=== PATIENT | female | born 1960 ===

== ENCOUNTER 2016-05-15 08:21 | Day surgery (SDC) | payer OTHER ==
[2016-03-12 11:14] VITALS: BMI 27.8
[2016-05-15] MEDS ORDERED: Rocuronium 10 mg/ml (5 ml) ONE (10:58)
[2016-05-15] MEDS ORDERED: Midazolam 2 MG/2 ML VIAL ONE (10:58)
[2016-05-15] MEDS ORDERED: Propofol 10 mg/ml Inj (20 ML) ONE (10:58)
[2016-05-15] MEDS ORDERED: Succinylcholine Chloride 20 mg/ml Syr (5 ml) IV ONE (10:59)
[2016-05-15] MEDS ORDERED: Lidocaine Hydrochloride 5 ML INJ ONE (11:00)
[2016-05-15] MEDS ORDERED: Lactated Ringer's 1,000 ML IV ONE (11:10)
[2016-05-15] MEDS ORDERED: ceFAZolin IV 1 gm in Dextrose 100 ML IVPB ONE (11:16)
[2016-05-15] MEDS ORDERED: ePHEDrine 50 mg/ml Inj ONE (12:00)
[2016-05-15] MEDS ORDERED: Lidocaine 2% Inj (20ml) ONE (12:17)
[2016-05-15] MEDS ORDERED: Bupivacaine HCl 0.5% PF (10 ml) Inj ONE (12:57)
[2016-05-15] MEDS ORDERED: Neostigmine Methylsulfate 3mg/3ml Syringe IV ONE (13:03)
--- NOTE | 2016-05-15 13:14 | PCM.SURG1 ---
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 Anesthesia - General. Hemostasis - Right Pneumatic Thigh Tourniquet at 350mmHg for 81 minutes. EBL - 10mL. Materials - Arthrex SpeedBridge, 2-0 Vicryl, 4-0 Vicryl, 4-0 Moncryl, Sterstrips, Xeroform, DSD, Posterior Splint. Injectables - 15mL 0.5% Marcaine Plain, 5mL 2% Lidocaine Plain. Condition - Stable. Complications - None Post-Operative Diagnosis: Same Operation Performed: Right Ankle - Excision of Achilles tendon calcifications and calcaneal bone spurs with repair of achilles tendon Specimen/Specimens Removed: Bone Estimated Blood Loss: EBL {In ML}: 10 Blood Products Given: N/A Drains Used: No Drains Post-Op Condition: Good Date of Surgery/Procedure: 05/15/16 Time of Surgery/Procedure: 13:15 (In PACU)
[2016-05-15] MEDS ORDERED: Oxycodone/Acetaminophen 5/325 mg Tab PO PRN ×2 (13:15)
[2016-05-15] MEDS ORDERED: HYDROmorphone 0.5 mg/0.5 ml ISec IVP PRN (13:38)
[2016-05-15] MEDS ORDERED: Lactated Ringer's 1,000 ML IV SCH (13:45)
--- NOTE | 2016-05-15 14:09 | RAD ---
Right ankle two views History: Right Achilles tendon repair with spur incision. Comparison: None available. Findings: Prominent plantar calcaneal spurring. Transverse oblique linear lucency through the posterior calcaneus extending from the posterior superior cortex to the mid inferior cortex. This is of uncertain clinical etiology however osseous injury can't be excluded. Correlation with CT scan or MRI may be helpful for further evaluation to exclude fracture. Narrowing of the tibiotalar joint space. Mild productive change along the posterior cortex of the mid fibula, nonspecific. Ankle mortise maintained. Talar dome intact. Impression: Prominent plantar calcaneal spurring. Transverse oblique linear lucency through the posterior calcaneus extending from the posterior superior cortex to the mid inferior cortex. This is of uncertain clinical etiology however osseous injury can't be excluded. Correlation with CT scan or MRI may be helpful for further evaluation to exclude fracture. Narrowing of the tibiotalar joint space. Mild productive change along the posterior cortex of the mid fibula, nonspecific.
[2016-05-15] MEDS ORDERED: Lactated Ringer's 500 ML IV ONE (14:45)
[2016-05-15 16:25] VITALS: RESP 18; O2SAT 96
[2016-05-15 16:28] VITALS: BP 131/55; PULSE 72; TEMP 97.9
--- NOTE | 2016-05-16 16:31 | OP ---
PROCEDURE DATE: 05/15/2016 SURGEON: Shant Giang DPM. ASSISTANTS: 1. Martinez Mike DPM, PGY-3. 2. Denise Wang DPM, PGY-2. NECKTIES PAINTER: DIMITRIS Espinoza. PREOPERATIVE DIAGNOSES: 1) Right Lower Leg - Partial Achilles Tendon Tear 2) Right Foot - Painful calcaneal bone exostosis with spur POSTOPERATIVE DIAGNOSES: 1) Right Lower Leg - Partial Achilles Tendon Tear 2) Right Foot - Painful calcaneal bone exostosis with spur NAME OF PROCEDURE: 1) Right Lower Leg - Repair of Achilles Tendon with excision of painful calcifications and spurs. 2) Right Foot - Exostectomy of painful calcaneal bone exostosis and spurs INDICATIONS: This is a 55-year-old female with the aforementioned diagnosis. The patient has exhausted any and all conservative treatment options and she now requests for surgical intervention. The patient signed the consent form after careful explanation of all the risks, benefits, complications, and alternatives for the surgical procedure. There were no guarantees that were made, given, nor implied. PREPARATION: The patient was brought into the operating room, placed on the operating room table in the prone position. Prior to placing the patient on the operating room table, a well-padded pneumatic thigh tourniquet was placed on the patient's right thigh at the upper 1/3 thigh level. After induction of general anesthesia, the patient was then placed on to the operating room table in the prone position. Next, the right lower extremity was now prepped and draped in the usual sterile manner. A timeout was performed. An Esmarch bandage was utilized to exsanguinate the right foot, ankle, and lower leg. The pneumatic thigh tourniquet was then inflated to 350 mmHg and the procedure began. PROCEDURES #1 & #2: Our attention was directed to the posterior aspect of the patient's right heel where an approximately 5-6 cm linear incision was made on the posterior aspect of the patient's Achilles tendon and its insertion on the calcaneus. The incision was deepened to the subcutaneous tissues utilizing a combination of sharp and blunt dissection. Care was taken to identify and retract all vital neurovascular structures and cauterize all bleeders as deemed necessary. The incision was deepened down to the level of the peritenon on the Achilles tendon. Once the level was encountered, a fresh #15 blade was now utilized to make a linear incision on the posterior aspect of the Achilles tendon, thus incising the peritenon. The peritenon was then carefully dissected to free up its soft tissue attachments both medially and laterally and then reflected out of the surgical field. Next, a #15 blade was now utilized to make a linear incision within the Achilles tendon, approximately 4 cm superior to its insertion down to the level of its insertion on the calcaneus. The Achilles tendon was now split longitudinally and any intrasubstance calcifications became immediately identifiable and were now removed and sent as a pathologic specimen. Careful attention was paid when dissecting the Achilles insertion off of the calcaneus, that the far medial and far lateral attachments remained intact and not completely stripped off the calcaneus. Next, after all intrasubstance calcifications within the Achilles tendon were removed, this was then confirmed with the use of intraoperative fluoroscopy it was noted partial/intrasubstance tears of the achilles were identified. Next, osteotomes were now utilized to remove the hypertrophied bone off the posterior aspect of the calcaneus. The hypertrophied bone was removed from the calcaneal tuber until the posterior aspect of the calcaneus had a smooth contour. Next, the surgical site was now irrigated with a copious amount of normal sterile saline solution. Next, the Arthrex SpeedBridge was now sterilely passed onto the operative field. Utilizing the drill bit from the SpeedBridge set, the 2 superior drill holes were now created within the posterior aspect of the calcaneus. Next, after the drill holes were then created, the 2 SwiveLock anchors with FiberWire tape were now inserted appropriately into their superior drill holes. Next, the FiberTape loop with the needle from each SwiveLock was now passed through its respective portion of the Achilles tendon, the medial SwiveLock through the medial portion and the lateral SwiveLock through the lateral portion. Next, again utilizing the Arthrex 3.5 mm drillbit and drill guide, the 2 inferior drill holes were now created approximately 1 cm inferior to the superior drill holes within the posterior aspect of the calcaneus. Next, the FiberWire tape from each superior SwiveLock was now cut in order to reveal 2 strands of FiberWire per SwiveLock. Next, 1 strand of FiberWire from each SwiveLock was now respectively passed through the empty remaining SwiveLock anchors and then inserted into the inferior drill holes following the Arthrex surgical technique guide. After that was completed, all loose strands of FiberWire and excess strands of FiberWire are now cut to an appropriate length and discarded. The ankle was now put through a range of motion and the Achilles tendon was noted to be at an approximate physiologic tension. Next, the surgical site was now irrigated with a copious amount of normal sterile saline solution. Next, utilizing 2-0 Vicryl suture in a running locking fashion, the longitudinal split within the Achilles tendon was now repaired. Next, the surgical site was irrigated again with normal sterile saline solution and the peritenon was now reapproximated with #4- 0 Vicryl suture in a simple interrupted fashion. Next, the subcutaneous and subcuticular tissues were reapproximated with 4-0 Vicryl suture and then the skin was reapproximated with 4-0 Monocryl suture in a running subcuticular fashion. Next, the surgical site was then cleansed and dried and Steri-Strips were now applied across the surgical site. Next, the patient received a postoperative injection consisting of 15 mL of 0.5% Marcaine plain and 5 mL of 2 % lidocaine plain in the form of a local field block infiltration to the entire surgical area. Next, the surgical site was now dressed with Xeroform followed by dry sterile dressing followed by a standard posterior splint. The pneumatic thigh tourniquet was deflated and removed for a total of 81 minutes. POSTOPERATIVE CONDITION: The patient tolerated the anesthesia and the procedure well and was escorted to the recovery room with her vital signs stable and her neurovascular status intact to the right foot and ankle as noted by instantaneous hyperemia to all 5 digits of the right foot. The patient will be nonweightbearing to the right lower extremity with the use of axillary crutches. The patient will follow up with Dr. Giang in his office this coming 05/20/16. Martinez Mike DPM Shant Giang DPM cc: [id number] TT: 05/16/2016 16:31:36 rn [email or web address]
== END 2016-05-15 15:45 | disposition home or self-care (01) ==
LOC: C.SDS 08:21
PROVIDERS: ATTEND Student in an Organized Health Care Education/Training Program
DX: M76.61 Achilles tendinitis, right leg (principal); M77.31 Calcaneal spur, right foot
CPT/HCPCS: 27630; 27650; 73600; 88304; 97116; 97161; C1713; G8978; G8979; G8980; J0690; J2250; J2704; J2710; J3010; J7120